=== PATIENT | male | born 1955 | race Hispanic/Latino ===

== ENCOUNTER → 2017-04-24 | Outpatient (CLI) | payer MEDICARE | END | disposition home or self-care (01) | LOC: RAH 08:55 | PROVIDERS: ATTEND Internal Medicine Gastroenterology | DX: K21.9 Gastro-esophageal reflux disease without esophagitis (principal); R13.10 Dysphagia, unspecified | CPT/HCPCS: 74230; 92611 ==

== ENCOUNTER → 2019-08-17 | Outpatient (CLI) | payer OTHER, MEDICARE | END | disposition home or self-care (01) | LOC: RAH 08:26 | PROVIDERS: ATTEND Internal Medicine | DX: K76.0 Fatty (change of) liver, not elsewhere classified (principal); K70.9 Alcoholic liver disease, unspecified; I70.0 Atherosclerosis of aorta; R16.0 Hepatomegaly, not elsewhere classified | CPT/HCPCS: 76700 ==

== ENCOUNTER → 2022-07-11 | Outpatient (CLI) | payer OTHER, MEDICARE ==
[~2022-07-11] MED LIST: IOHEXOL 350 MG/ML 100ML INFUS..BTL IV ONE
== END | disposition home or self-care (01) ==
LOC: CANSCHCLI → RAH 08:57
PROVIDERS: ATTEND Student in an Organized Health Care Education/Training Program
DX: Z95.1 Presence of aortocoronary bypass graft (principal)
CPT/HCPCS: 75574; Q9967

== ENCOUNTER → 2024-04-01 | Outpatient (CLI) | payer OTHER, MEDICARE ==
[~2024-04-01] MED LIST changes: +AMOX1TAB16 PO; +DORZ10DR19 OP; +FAMO40TA7 PO; +FURO40TA5 PO; -IOHEXOL 350 MG/ML 100ML INFUS..BTL IV ONE; +LEVO25CA4 PO; +METF-444 PO; +METO-409 PO; +OMEP40CA21 PO; +SPIR25TA6 PO; +TIMO1DRO9 OP
--- NOTE | 2024-04-01 14:47 | HMCSR ---
APPROVED REPORT Height: 5 ft 2in Weight: 150 lbs TEST INDICATIONS Z95.1 PRESENCE OF AORTOCORONARY BYPASS GRAFT The imaging protocol used to acquire images was Rest Tc-99m/stress Tc-99m 1 day Consent: The procedure was explained and understood by the patient. Informerd consent was witnessed Brian Smith RN First, low dose rest was performed then high dose stress. RESTING DATA: The resting ekg shows: NSR, TWI v1-v6 Rest SPECT myocardial perfusion imaging was performed in supine position 65 minutes following the int ravenous injection of 11.3 mCi of Tc-99 Sestamibi. Time of rest injection: 839 Date: 04/01/2024 Time of rest imagin Date: 04/01/2024 PHARMACOLOGIC STRESS: Pharmacologic stress test was performed by injecting regadenoson 0.4 mg IV push followed by the intra venous injection of 30.8 mCi of Tc-99 Sestamibi. Time of stress injection: 102 Date: 04/01/2024 Time of stress imagin Date: 04/01/2024 Heart Rate at time of stress injection: 57 bpm. Gated Stress SPECT was performed 63 minutes after stress injection. The images were gated to evaluate regional wall motion and calculate left ventricular ejection fracti on. STRESS DETAILS Reason for Termination: Infusion complete Stress Symptoms: Dyspnea Max HR Achieved: 65 bpm % of APMHR Achieved: 43 Max Blood Pressure: 123/70 mmHg Stress ECG: NSR, TWI v1-v6 Study quality was good. Lung uptake was Normal. Artifact: No artifact IMPRESSION Normal pharmacologic nuclear stress test. Conclusion Normal perfusion. LVEF 54%.
[2024-04-01] MEDS: REGADENOSON 0.4 MG/5 ML PF SYG IVP ONE (15:33)
== END | disposition home or self-care (01) ==
LOC: SHCH 08:08
PROVIDERS: ATTEND Student in an Organized Health Care Education/Training Program
DX: R06.00 Dyspnea, unspecified (principal); Z95.1 Presence of aortocoronary bypass graft
CPT/HCPCS: 78452; 93017; J2785; A9500 ×2